=== PATIENT | female | born 1985 | race Two or more races ===

== ENCOUNTER 2016-07-18 20:13 | Inpatient (IN) | payer MEDICAID, OTHER ==
[~2016-07-18] VITALS: Ht 160 cm; Wt 95.6 kg
[2016-07-18 20:49] LABS: Basophils # (auto) 0.1 uL; Basophils % (auto) 0.9 % (0.0-2.0); Eosinophils # (auto) 0.1 uL; Hematocrit 41.8 % (36.0-46.0); Hemoglobin 13.2 g/dL (12.2-16.2); Lymphocytes # (auto) 3.5 uL; Lymphocytes % (auto) 28.3 % (10.0-50.0); Mean Corpuscular Hemoglobin 28.5 pg (28.0-32.0); Mean Corpuscular Hgb Conc. 31.5 g/dL (32.0-36.0); Mean Corpuscular Volume 90.6 fL (80.0-100.0); Monocytes # (auto) 0.6 uL; Monocytes % (auto) 5.1 % (0.0-12.0); Neutrophils # (auto) 8.1 uL; Neutrophils % (auto) 64.7 % (37.0-80.0); Platelet Count (auto) 276 10^3/uL (140-450); White Blood Cell 12.5 10^3/uL (4.4-10.8)
[2016-07-18 21:09] LABS: Albumin 3.9 g/dL (3.4-5.0); Calcium 8.7 mg/dL (8.5-10.1); Potassium 3.7 mmol/L (3.5-5.1)
[2016-07-18 21:11] LABS: Bilirubin, Total 0.6 mg/dL (0.2-1.0); Total Protein 7.6 g/dL (6.4-8.2)
[2016-07-19] VITALS (8 sets, daily range): BP systolic 112–119; BP diastolic 52–77
[2016-07-19] MEDS ORDERED: ASPirin 81 mg TAB PO ONE (02:15)
[2016-07-19] MEDS ORDERED: methylPREDNISolone SOD SUCC 125 MG/2 ML VL IV ONE (02:15)
[2016-07-19] MEDS ORDERED: ONDANSETRON HCL 4 MG/2 ML VIAL IV PRN (03:30)
[2016-07-19] MEDS ORDERED: HYDROcodone-ACET 5/325MG TAB PO PRN (03:30)
[2016-07-19] MEDS ORDERED: ACETAMINOPHEN 325 MG TAB PO PRN (03:30)
[2016-07-19 04:08] LABS: Urine Bilirubin Negative (Negative); Urine Blood Negative /uL (Negative); Urine Color Yellow (Yellow); Urine Glucose Normal (Normal); Urine Ketone Negative (Negative); Urine Mucus FEW (None Seen); Urine Nitrite Negative (Negative); Urine RBC 1 /hpf (0 - 4); Urine Squamous Epithelial Cell FEW /hpf (<5); Urine Urobilinogen Normal (Negative); Urine pH 5.5 (5.0-8.0)
[2016-07-19] MEDS: ASPirin 81 mg TAB PO SCH (10:31)
[2016-07-19] MEDS: FAMOTIDINE 20 MG TAB PO SCH ×2 (10:31→21:50)
[2016-07-20 05:30] VITALS: BP 103/51
[2016-07-20 06:47] LABS: Basophils # (auto) 0 uL; Eosinophils # (auto) 0 uL; Eosinophils % (auto) 0.2 % (0.0-7.0); Hematocrit 38.6 % (36.0-46.0); Hemoglobin 12.1 g/dL (12.2-16.2); Lymphocytes # (auto) 3.8 uL; Lymphocytes % (auto) 23.1 % (10.0-50.0); Mean Corpuscular Hgb Conc. 31.4 g/dL (32.0-36.0); Mean Corpuscular Volume 92.2 fL (80.0-100.0); Mean Platelet Volume 8.4 fL (7.4-10.4); Monocytes # (auto) 0.8 uL; Monocytes % (auto) 4.7 % (0.0-12.0); Neutrophils # (auto) 11.8 uL; Platelet Count (auto) 265 10^3/uL (140-450); Red Cell Distribution Width 13.1 % (11.6-16.0); White Blood Cell 16.4 10^3/uL (4.4-10.8)
[2016-07-20 07:06] LABS: Albumin 3.6 g/dL (3.4-5.0); Calcium 8.6 mg/dL (8.5-10.1); Potassium 3.7 mmol/L (3.5-5.1)
[2016-07-20 07:08] LABS: BUN/Creatinine Ratio 27.4
[2016-07-20 07:10] LABS: Bilirubin, Total 0.6 mg/dL (0.2-1.0); Total Protein 6.9 g/dL (6.4-8.2)
[2016-07-20 08:00] VITALS: BP 108/64
[2016-07-20 09:00] VITALS: BP 108/64
[2016-07-20] MEDS: FAMOTIDINE 20 MG TAB PO SCH (09:52)
[2016-07-20] MEDS: ASPirin 81 mg TAB PO SCH (09:52)
[2016-07-20 12:48] VITALS: BP 107/47
[2016-07-20 16:07] VITALS: BP 108/64
[2016-07-20 17:00] VITALS: BP_SYST 111; BP_SYST 112; BP_DIAS 60; BP_DIAS 64
== END 2016-07-20 17:15 | disposition home or self-care (01) | DRG 82 ==
LOC: ER 20:18 → OVERFLOW 20:19 → EAST 07-19 04:49
PROVIDERS: ADMIT Nurse Practitioner; ATTEND Family Medicine
DX: H02.846 Edema of left eye, unspecified eyelid (principal); B02.9 Zoster without complications; I10 Essential (primary) hypertension; R07.9 Chest pain, unspecified; R20.0 Anesthesia of skin; E66.9 Obesity, unspecified; F41.9 Anxiety disorder, unspecified; F32.9 Major depressive disorder, single episode, unspecified; Z98.890 Other specified postprocedural states; Z68.37 Body mass index [BMI] 37.0-37.9, adult
CPT/HCPCS: 36415; 70450; 70551; 80053; 81001; 84484; 84702; 85025; 93005; 94761; 96374; G0434

== ENCOUNTER 2017-09-10 11:17 | Emergency (ER) | payer MEDICAID, OTHER ==
[~2017-09-10] VITALS: Ht 160 cm; Wt 94.8 kg
[2017-09-10 11:35] VITALS: BP 128/78
[2017-09-10] MEDS ORDERED: diphenhdrAMINE HCL 25 MG CAP PO ONE ×2 (12:30→12:45)
== END 2017-09-10 13:21 | disposition home or self-care (01) ==
LOC: ER 11:17
DX: T65.891A Toxic effect of other specified substances, accidental (unintentional), initial encounter (principal); T20.42XA Corrosion of unspecified degree of lip(s), initial encounter; T26.51XA Corrosion of right eyelid and periocular area, initial encounter; Y93.G1 Activity, food preparation and clean up; Y99.8 Other external cause status; Y92.89 Other specified places as the place of occurrence of the external cause

== ENCOUNTER 2018-03-23 19:51 | Emergency (ER) | payer OTHER ==
[~2018-03-23] VITALS: Ht 165.1 cm; Wt 90.3 kg
[2018-03-23 20:15] VITALS: BP 131/72
[2018-03-23] MEDS ORDERED: cefTRIAXone SOD 1,000 MG VL IM ONE (21:15)
[2018-03-23] MEDS ORDERED: TETANUS-DIPTH-ACEL PERTUSSIS 0.5ML SYRG IM ONE (21:15)
== END 2018-03-23 21:24 | disposition home or self-care (01) ==
LOC: ER 19:52
DX: S61.217A Laceration without foreign body of left little finger without damage to nail, initial encounter (principal); W25.XXXA Contact with sharp glass, initial encounter; Y93.89 Activity, other specified; Y99.8 Other external cause status; Y92.89 Other specified places as the place of occurrence of the external cause
CPT/HCPCS: 90471; 90715; 96372; 99284; J0696

== ENCOUNTER 2019-01-08 11:12 | Emergency (ER) | payer SELFPAY ==
[~2019-01-08] VITALS: Ht 162.6 cm; Wt 90.3 kg
[2019-01-08 11:20] VITALS: BP 12/80
== END 2019-01-08 14:08 | disposition home or self-care (01) ==
LOC: ER 11:17
DX: S16.1XXA Strain of muscle, fascia and tendon at neck level, initial encounter (principal); Z90.49 Acquired absence of other specified parts of digestive tract; X58.XXXA Exposure to other specified factors, initial encounter; Y93.89 Activity, other specified; Y99.8 Other external cause status; Y92.89 Other specified places as the place of occurrence of the external cause
CPT/HCPCS: 70450